=== PATIENT | male | born 1965 | race Caucasian/White ===

== ENCOUNTER → 2023-07-16 13:59 | Outpatient (REF) | payer BC, SELFPAY | LOC: RAD 13:59 | PROVIDERS: ATTENDING PHYSICIAN Registered Nurse; FAMILY PHYSICIAN Family Medicine | DX: M79.89 Other specified soft tissue disorders (principal) | CPT/HCPCS: 93970 ==

== ENCOUNTER → 2023-10-01 07:29 | Outpatient (REF) | payer BC, SELFPAY | LOC: RCS 07:29 | PROVIDERS: ATTENDING PHYSICIAN Internal Medicine Cardiovascular Disease; FAMILY PHYSICIAN Family Medicine | DX: I25.10 Atherosclerotic heart disease of native coronary artery without angina pectoris (principal) | CPT/HCPCS: 93017 ==

== ENCOUNTER 2025-01-12 06:22 | Day surgery (SDC) | payer BC, SELFPAY | END 2025-01-12 12:28 | disposition home or self-care (01) | LOC: GI 06:22 | PROVIDERS: ATTENDING PHYSICIAN Internal Medicine | DX: Z12.11 Encounter for screening for malignant neoplasm of colon (principal); K63.5 Polyp of colon; Z86.0100 Personal history of colon polyps, unspecified | CPT/HCPCS: 45380; 88305 ==